=== PATIENT | female | born 1965 | race Two or more races ===

== ENCOUNTER 2018-10-19 09:59 | Outpatient (CLI) | payer BC | END 2018-10-19 23:59 | disposition home or self-care (01) | LOC: MRI 09:59 | DX: M25.412 Effusion, left shoulder (principal); M19.012 Primary osteoarthritis, left shoulder; M75.82 Other shoulder lesions, left shoulder; M65.812 Other synovitis and tenosynovitis, left shoulder; M25.612 Stiffness of left shoulder, not elsewhere classified | CPT/HCPCS: 73221-TC ==

== ENCOUNTER 2019-04-10 09:26 | Outpatient (CLI) | payer BC ==
[2019-04-10] MEDS ORDERED: GADOTERIDOL 279.3 MG/ML VIAL IV ONE (13:40)
== END 2019-04-10 23:59 | disposition home or self-care (01) ==
LOC: MRI 09:26
DX: G93.89 Other specified disorders of brain (principal); C51.9 Malignant neoplasm of vulva, unspecified
CPT/HCPCS: 70553; A9579

== ENCOUNTER 2019-09-15 13:58 | Outpatient (CLI) | payer BC ==
[2019-09-15 15:19] LABS: CALCIUM, SERUM 9.5 mg/dL (8.5-10.1); CREATININE 0.9 mg/dL (0.6-1.3)
== END 2019-09-15 23:59 | disposition home or self-care (01) ==
LOC: LAB 13:58
DX: D49.6 Neoplasm of unspecified behavior of brain (principal); D32.9 Benign neoplasm of meninges, unspecified
CPT/HCPCS: 36415; 80048-TC

== ENCOUNTER 2019-09-18 09:16 | Outpatient (CLI) | payer BC ==
[2019-09-18] MEDS ORDERED: GADOTERIDOL 279.3 MG/ML VIAL IV ONE (09:17)
== END 2019-09-18 23:59 | disposition home or self-care (01) ==
LOC: MRI 09:16
DX: D49.6 Neoplasm of unspecified behavior of brain (principal); D32.9 Benign neoplasm of meninges, unspecified
CPT/HCPCS: 70553; A9579

== ENCOUNTER 2019-10-24 14:30 | Outpatient (CLI) | payer BC | END 2019-10-24 23:59 | disposition home or self-care (01) | LOC: WOU 14:30 | PROVIDERS: ATTEND Podiatrist Foot & Ankle Surgery | DX: L60.0 Ingrowing nail (principal); L03.032 Cellulitis of left toe; M79.672 Pain in left foot | CPT/HCPCS: G0463 ==

== ENCOUNTER 2020-04-22 14:07 | Outpatient (CLI) | payer BC ==
[2020-04-22 14:30] LABS: BASOPHILS # (AUTO) 0.1 /CMM (0.0-0.2); BASOPHILS % (AUTO) 0.9 % (0.0-2.0); EOSINOPHILS % (AUTO) 1.4 % (0.0-6.0); HEMATOCRIT 40 % (33-45); HEMOGLOBIN 13.6 g/dL (11.5-14.8); LYMPHOCYTES # (AUTO) 2.3 /CMM (0.8-4.8); LYMPHOCYTES % (AUTO) 35.9 % (20.0-44.0); MEAN CORPUSCULAR HGB CONC 34 g/dl (31.0-36.0); MEAN CORPUSCULAR VOLUME 96 fL (82-100); MONOCYTES # (AUTO) 0.5 /CMM (0.1-1.30); MONOCYTES % (AUTO) 7.4 % (2.0-12.0); NEUTROPHILS # (AUTO) 3.4 /CMM (1.8-8.9); NEUTROPHILS % (AUTO) 54.4 % (43.0-81.0); PLATELET COUNT (AUTO) 236 /CMM (150-450); RED BLOOD CELL COUNT(AUTO) 4.21 MIL/uL (4.0-5.2); WHITE BLOOD COUNT (AUTO) 6.3 K/uL (4.3-11.0)
[2020-04-22 15:27] LABS: ALBUMIN 3.8 g/dL (3.4-5.0); BILIRUBIN,DIRECT 0.1 mg/dL (0.0-0.2); BILIRUBIN,TOTAL 0.4 mg/dL (0.2-1.0); CALCIUM, SERUM 9.3 mg/dL (8.5-10.1); CREATININE 1.1 mg/dL (0.6-1.3); TOTAL PROTEIN, SERUM 7.5 g/dL (6.4-8.2)
== END 2020-04-22 23:59 | disposition home or self-care (01) ==
LOC: LAB 14:07
PROVIDERS: ATTEND Nurse Practitioner Acute Care
DX: D49.6 Neoplasm of unspecified behavior of brain (principal)
CPT/HCPCS: 36415; 80048-TC; 80076-TC; 85025-TC

== ENCOUNTER 2020-04-23 08:49 | Outpatient (CLI) | payer BC ==
[2020-04-23] MEDS ORDERED: GADOTERATE MEGLUMINE 10 MMOL/20 ML VIAL IV ONE (08:50)
== END 2020-04-23 23:59 | disposition home or self-care (01) ==
LOC: RAD 08:49
DX: D49.0 Neoplasm of unspecified behavior of digestive system (principal); D32.9 Benign neoplasm of meninges, unspecified; Z98.890 Other specified postprocedural states
CPT/HCPCS: 70553; A9575